=== PATIENT | male | born 1975 | race Two or more races ===

== ENCOUNTER 2023-11-18 16:08 | Emergency (ER) | payer OTHER ==
[~2023-11-18] VITALS: Ht 175.3 cm; Wt 106.6 kg
[2023-11-18] MEDS ORDERED: LOSA50 PO (17:06)
[2023-11-18 19:29] VITALS: BP 132/98
== END 2023-11-18 23:00 | disposition home or self-care (01) ==
LOC: ER 16:08
DX: S61.412A Laceration without foreign body of left hand, initial encounter (principal); W26.8XXA Contact with other sharp object(s), not elsewhere classified, initial encounter; Y99.0 Civilian activity done for income or pay; I10 Essential (primary) hypertension
CPT/HCPCS: 73130

== ENCOUNTER → 2025-09-03 | Outpatient (CLI) | payer SELFPAY ==
[~2025-09-03] MED LIST: LOSA50 PO
[2025-09-03 21:11] LABS: Anion Gap 7.0 mmol/L (3-11); Blood Urea Nitrogen 15.0 mg/dL (8-24); CO2, Blood 30.0 mmol/L (21-32); Calcium, Blood 9.5 mg/dL (8.5-10.1); Chloride, Blood 100.0 mmol/L (98-108); Creatinine, Blood 1.18 mg/dL (0.60-1.20); Glucose, Blood 85.0 mg/dL (70-99); Potassium, Blood 4.1 mmol/L (3.5-5.5); Sodium, Blood 133.0 mmol/L (136-145)
== END | disposition home or self-care (01) ==
LOC: LAB 19:37 → LAB SHORT 19:37
PROVIDERS: Nurse Practitioner Family
DX: I10 Essential (primary) hypertension (principal)
CPT/HCPCS: 80048